=== PATIENT | female | born 1990 | race Caucasian/White ===

== ENCOUNTER 2022-06-29 10:31 | Emergency (ER) | payer SELFPAY ==
[2022-06-29] MEDS ORDERED: LORazepam 1 MG Tab PO ONE (10:59)
[2022-06-29] MEDS ORDERED: Ketorolac 60 MG/2 ML SDV IM ONE (11:11)
[2022-06-29] MEDS ORDERED: Ondansetron 4 MG Tab.DIS PO ONE (11:11)
[2022-06-29 12:29] LABS: BLOOD UREA NITROGEN,BUN 11 mg/dL (7.0-18.0); CARBON DIOXIDE,CO2 25.4 mmol/L (21.0-32.0); CHLORIDE,CL 105 mmol/L (98-107); ESTIMATED GFR 87 mL/min (>60); GLUCOSE RANDOM 93 mg/dL (74-106); POTASSIUM,K 4.2 mmol/L (3.5-5.1); SODIUM,NA 140 mmol/L (136-145)
[2022-06-29 13:00] VITALS: BP 116/80; PULSE 78
== END 2022-06-29 13:00 | disposition home or self-care (01) ==
LOC: MW.ED 10:31
DX: R00.2 Palpitations (principal); Z88.0 Allergy status to penicillin; Z91.018 Allergy to other foods; Z79.899 Other long term (current) drug therapy; Z20.822 Contact with and (suspected) exposure to COVID-19
CPT/HCPCS: 36415; 71045; 80053; 81001; 81025; 84443; 84484; 85025; 87635; 96372; 99285; A9270; J1885; U0002

== ENCOUNTER 2022-07-01 18:09 | Emergency (ER) | payer SELFPAY | END 2022-07-01 22:28 | disposition left against medical advice (07) | LOC: MW.ED 18:09 | DX: Z53.21 Procedure and treatment not carried out due to patient leaving prior to being seen by health care provider (principal) | CPT/HCPCS: 93005 ==

== ENCOUNTER 2022-08-06 23:48 | Emergency (ER) | payer SELFPAY ==
[2022-08-07 01:07] LABS: BLOOD UREA NITROGEN,BUN 6 mg/dL (7.0-18.0); CARBON DIOXIDE,CO2 22.7 mmol/L (21.0-32.0); CHLORIDE,CL 103 mmol/L (98-107); GLUCOSE RANDOM 128 mg/dL (74-106); SODIUM,NA 140 mmol/L (136-145)
[2022-08-07 01:09] LABS: ESTIMATED GFR 61 mL/min (>60)
[2022-08-07 06:35] VITALS: BP 112/77; PULSE 87
== END 2022-08-07 06:34 | disposition home or self-care (01) ==
LOC: MW.ED 23:48
DX: R45.1 Restlessness and agitation (principal); F12.129 Cannabis abuse with intoxication, unspecified; Z88.0 Allergy status to penicillin; Z91.018 Allergy to other foods; Z79.899 Other long term (current) drug therapy
CPT/HCPCS: 36415; 70450; 70450-26; 80053; 80307; 82550; 84443; 84703; 85025; 99284; 99285

== ENCOUNTER 2022-08-14 16:30 | Emergency (ER) | payer MEDICAID | END 2022-08-14 20:04 | disposition left against medical advice (07) | LOC: MW.ED 16:30 | DX: F41.9 Anxiety disorder, unspecified (principal) | CPT/HCPCS: 99283 ==

== ENCOUNTER 2022-11-16 17:47 | Emergency (ER) | payer BC, MEDICAID ==
[2022-11-16 18:05] VITALS: BP 119/72; PULSE 89
[2022-11-16] MEDS ORDERED: Alum Hydro/Mag Hydro/Simeth XS 15 ML, Metoclopramide 5 MG, Lidocaine 2% 5 ML PO ONE ×3 (18:17)
[2022-11-16 19:41] LABS: ACETAMINOPHEN <2.0 ug/mL; BLOOD UREA NITROGEN,BUN 7 mg/dL (7.0-18.0); CARBON DIOXIDE,CO2 27.7 mmol/L (21.0-32.0); CHLORIDE,CL 101 mmol/L (98-107); GLUCOSE RANDOM 94 mg/dL (74-106); LIPASE 59 U/L (73-393); POTASSIUM,K 4.2 mmol/L (3.5-5.1); SODIUM,NA 138 mmol/L (136-145)
[2022-11-16 19:42] LABS: ESTIMATED GFR 117 mL/min (>60)
== END 2022-11-16 20:05 | disposition home or self-care (01) ==
LOC: MW.ED 17:47
DX: M25.561 Pain in right knee (principal); M25.511 Pain in right shoulder; M79.641 Pain in right hand; R07.89 Other chest pain; R10.9 Unspecified abdominal pain; R20.2 Paresthesia of skin; J45.909 Unspecified asthma, uncomplicated; Z88.0 Allergy status to penicillin; Z91.018 Allergy to other foods
CPT/HCPCS: 36415; 80053; 80143; 80179; 80307; 83690; 85025; 85610; 99283; 99284

== ENCOUNTER 2022-11-25 03:03 | Emergency (ER) | payer BC ==
[2022-11-25 03:11] VITALS: BP 90/66; PULSE 101
[2022-11-25 03:56] LABS: ACETAMINOPHEN <2.0 ug/mL; BLOOD UREA NITROGEN,BUN 5 mg/dL (7.0-18.0); CARBON DIOXIDE,CO2 20.7 mmol/L (21.0-32.0); CHLORIDE,CL 105 mmol/L (98-107); GLUCOSE RANDOM 101 mg/dL (74-106); POTASSIUM,K 3.2 mmol/L (3.5-5.1); SODIUM,NA 141 mmol/L (136-145)
[2022-11-25 04:02] LABS: ESTIMATED GFR 100 mL/min (>60)
[2022-11-25] MEDS ORDERED: Potassium Chloride 20 MEQ Tab.ER PO ONE (04:16)
== END 2022-11-25 04:26 ==
LOC: MW.ED 03:03
DX: R45.1 Restlessness and agitation (principal); Z88.0 Allergy status to penicillin; Z91.048 Other nonmedicinal substance allergy status
CPT/HCPCS: 36415; 80053; 80143; 80179; 80307; 83735; 84443; 84703; 85025; 99285; A9270; 99283

== ENCOUNTER 2023-01-05 14:24 | Emergency (ER) | payer BC ==
[2023-01-05 14:29] VITALS: BP 140/75; PULSE 66
== END 2023-01-05 14:57 | disposition home or self-care (01) ==
LOC: MW.ED 14:24
DX: F19.10 Other psychoactive substance abuse, uncomplicated (principal); J45.909 Unspecified asthma, uncomplicated; Z88.0 Allergy status to penicillin; Z91.018 Allergy to other foods
CPT/HCPCS: 99283

== ENCOUNTER 2023-01-05 15:43 | Emergency (ER) | payer BC ==
[2023-01-05] MEDS ORDERED: Sodium Chloride 0.9% 1,000 ML IV ONE (15:48)
[2023-01-05] MEDS ORDERED: Sodium Chloride 0.9% 2.5 ML Syringe FLUSH PRN (15:48)
[2023-01-05] MEDS ORDERED: Sodium Chloride 0.9% 10 ML Syringe FLUSH PRN (15:48)
[2023-01-05] MEDS ORDERED: Water For Injection, Sterile 20 ML SDV INJECT ONE (16:02)
[2023-01-05] MEDS ORDERED: Ziprasidone Mesylate 20 MG Vial IM ONE (16:02)
[2023-01-05 17:05] LABS: ACETAMINOPHEN <2.0 ug/mL; BLOOD UREA NITROGEN,BUN 7 mg/dL (7.0-18.0); CARBON DIOXIDE,CO2 25.6 mmol/L (21.0-32.0); CHLORIDE,CL 105 mmol/L (98-107); GLUCOSE RANDOM 98 mg/dL (74-106); POTASSIUM,K 3.9 mmol/L (3.5-5.1); SODIUM,NA 142 mmol/L (136-145)
[2023-01-05 17:06] LABS: ESTIMATED GFR 87 mL/min (>60)
[2023-01-05] MEDS ORDERED: cefTRIAXone 1 GM in Sodium Chloride 0.9% 50 ML IV ONE (18:56)
[2023-01-05 19:52] VITALS: BP 118/61; PULSE 83
== END 2023-01-05 19:51 | disposition home or self-care (01) ==
LOC: MW.ED 15:43
DX: N39.0 Urinary tract infection, site not specified (principal); J45.909 Unspecified asthma, uncomplicated; Z88.0 Allergy status to penicillin; Z91.018 Allergy to other foods; F19.10 Other psychoactive substance abuse, uncomplicated
CPT/HCPCS: 36415; 80053; 80143; 80179; 80305; 81001; 84703; 85025; 87077; 87086; 93005; 96361; 96365; 96372; 99283; J0696; J3486; J3490; J7030; J7050; 93010